=== PATIENT | male | born 1950 | race Caucasian/White ===

== ENCOUNTER 2019-04-23 03:36 | Inpatient (IN) | payer MEDICARE, OTHER, SELFPAY ==
[2019-04-23] VITALS (14 sets, daily range): BP systolic 96–157; BP diastolic 58–103; PULSE 78–110; RESP 16–24; TEMP 36.5–37.4; O2SAT 88–97; BMI 33.4
--- NOTE | 2019-04-23 03:45 | RAD_ITS ---
STUDY: X-RAY CHEST REASON FOR EXAM: Male, 68 years old. Agitation TECHNIQUE: AP portable COMPARISON: None. FINDINGS: The lungs are clear and expanded. There is no demonstrated pleural abnormality. Normal size heart. Normal mediastinum and gypsy. There is vascular congestion. Normal visualized aortic arch and descending thoracic aorta. Normal visualized thoracic spine. Normal visualized ribs, clavicles, and shoulders. There is no demonstrated abnormality of the visualized soft tissue structures of the upper abdomen. RAD/Chest 1 View (Portable) IMPRESSION: Central vascular congestion. No focal lung consolidative changes. Electronically Signed: Jose Armando Blanco, at 4:57 EDT Tel , Service support ,
--- NOTE | 2019-04-23 03:45 | EKG12_ITS ---
Test Reason : Blood Pressure : / mmHG Vent. Rate : 107 BPM Atrial Rate : 088 BPM P-R Int : 000 ms QRS Dur : 148 ms QT Int : 380 ms P-R-T Axes : 000 -62 020 degrees QTc Int : 507 ms Atrial fibrillation with rapid ventricular response Right bundle branch block Left anterior fascicular block Bifascicular block Abnormal ECG Confirmed by CONNER NAVARRO, KATE ([id number]), communications editor DILLON EAGLE ([id number]) on 04/24/2019 10:42:44 AM Referred By: Errol Longoria Confirmed By:SILVIA PRIETO MD
--- NOTE | 2019-04-23 03:45 | CT_ITS ---
STUDY: CT BRAIN WITHOUT CONTRAST REASON FOR EXAM: Male, 68 years old. Agitation and combative, Parkinson's RADIATION DOSAGE (If Supplied By Facility): CTDIvol = ( 44.99 ) mGy, DLP = ( 863.60 ) mGycm TECHNIQUE: Transaxial CT imaging of the brain was performed without administration of intravenous contrast material. Individualized dose optimization techniques were used for this CT. COMPARISON: No relevant priors. FINDINGS: Normal soft tissue structures. Normal calvarium. Normal size ventricles and extra-axial spaces for the patient's age. Normal white matter tracts of the cerebral hemispheres. Normal basal ganglia and thalami. Normal brainstem. Normal cerebellum. There is no intracranial hemorrhage. There are no findings of an acute ischemic infarction. Normal visualized paranasal sinuses. There has been prior bilateral maxillary sinus antrectomies. CT/Brain/Head without Contrast IMPRESSION: Negative unenhanced CT scan of the brain for acute intracranial abnormality. Electronically Signed: Jose Armando Blanco, at 4:46 EDT Tel , Service support ,
[2019-04-23 04:20] LABS: Absolute Lymphocyte Count 1.54 X10^3/ul (0.83-4.51); Absolute Neutrophil Count 7.2 X10^3/uL (2.0-7.7); Basophil# 0.03 X10^3/uL; Basophil% 0.3 % (0-1); Eosinophil# 0.18 X10^3/uL; Eosinophils% 1.8 % (0-5); Hematocrit 41.4 % (40-54); Hemoglobin 12.9 g/dl (13.0-16.5); Lymphocyte # 1.54 X10^3/ul (4.0); Lymphocyte % 15.1 % (19-41); Mean Corp Hgb Conc 31.2 g/gl (32-36); Mean Corpuscular Hgb 23.6 pg (27.0-32.0); Mean Corpuscular Volume 75.8 fL (80-94); Mean Platelet Vol. 9.8 fl (6.2-12.0); Monocyte# 1.21 X10^3/uL; Monocyte% 11.8 % (0-10); Neutrophil # 7.24 X10^3/uL (2.7-7.7); Neutrophil % 70.7 % (47-70); Platelet Count 245 K/mm3 (150-450); RBC Distribution Width CV 17.5 % (11.6-14.6); RBC Distribution Width SD 47.3 fl (35.1-43.9); Red Blood Count 5.46 M/mm3 (4.6-6.2); White Blood Count 10.2 K/mm3 (4.4-11.0)
[2019-04-23 04:27] LABS: International Normalized Ratio 1.9; Prothrombin Time (Protime)PT. 21.6 SECONDS (11.7-14.9)
[2019-04-23 04:28] LABS: POSITIVE COUNT NO; POSITIVE DIFFERENTIAL NO; POSITIVE MORPHOLOGY NO
[2019-04-23 04:38] LABS: ALB/GLOB Ratio 0.8 RATIO (0.9-2.4); AST(SGOT) 15 U/L (15-37); Alanine Aminotransfer ALT/SGPT 20 U/L (16-61); Albumin, Serum 3.6 g/dL (3.2-5.0); Alkaline Phosphatase 93 U/L (45-117); Anion Gap 7 (5-15); BUN 24 mg/dL (7-18); Calcium,Total 8.8 mg/dL (8.5-10.1); Chloride 108 mmol/L (98-107); Creatinine, Serum 0.96 mg/dL (0.70-1.30); EST Glomerular Filtration Rate 83 mL/min (>60); Est Glom Filt Rate - Afr Amer 100 mL/min (>60); Globulin 4.4 g/dL (2.2-4.2); Glucose 99 mg/dL (74-106); Sodium Level 145 mmol/L (136-145)
[2019-04-23 04:39] LABS: Alcohol, Blood (Medical)-Serum < 3.0 mg/dL
--- NOTE | 2019-04-23 05:12 | ED.VISSUMM ---
- ER Visit Summary Date of Service: 04/23/19 Chief Complaint: Agitation History of Present Illness: The patient is a 68 M presents with agitation. He has a history of Parkinson's disease and associated psychosis, diabetes, hypertension, history of DVT and pulmonary embolism. He has no history of coronary disease NM CHF. Per the nursing facility he was combative agitated acting out. Family states this is not new. He has standing orders for Haldol. He was given Haldol shortly before transportation here. EMS reports that after they turned down the lights in the squad he was calm and resting. Family is unaware of any recent illness such as fevers vomiting diarrhea. He does have a history of UTIs. Physical Examination: Afebrile initial heart rate 88 initial respiratory rate 22 pulse ox 97% Moist mucous membranes Heart regular rate and rhythm Lungs are clear I do not appreciate rales or wheezing Abdomen soft Extremities nontender Somnolent with snoring respirations does not open his eyes to voice or tactile stimuli but he has been seen moving all 4 extremities he does not appear to have any lateralizing or focal deficits Test Results: EKG shows atrial fibrillation at a rate of 107 with a right bundle branch block and left anterior fascicular block. Labs notable for BUN 24, INR 1.9. Troponin negative. Alcohol negative. Urinalysis and urine drug screen are currently pending. Chest x-ray shows central vascular congestion. CT of the head is negative for acute intracranial process. Emergency Department Course and Treatment: I spoke to family and they believe that they may have just waited too long to give the patient Haldol before he became increasingly agitated. They do note that he has standing orders for Haldol at the nursing facility. We discussed medical clearance and then reevaluation once awake to see if he would require geriatric psychiatric placement versus transfer back to the facility. However with the above work-up he was found to be in new onset atrial fibrillation with aVR. Family states he has no history of this. Additionally he has some central vascular congestion on chest x-ray. On reevaluation his pulse ox is 88% to 89% on room air. He was placed on oxygen by nasal cannula. He likely does have some CHF. He was given IV Lasix and Torres was placed. Patient discussed with the hospitalist and admitted. Treatment Plan: [] Disposition: Admit Impression: New onset atrial fibrillation with RVR Agitation This note was generated with [employer] dictation software. It may contain incorrect words, spelling, and punctuation that were not noted in review of the chart prior to signing ED Disposition - Plan for ED Patient: Referrals: Deng Velasquez, CASE PLANNER-C [Primary Care Provider] -
[2019-04-23] MEDS: Furosemide 20 MG/2 ML VIAL IV ×4 (05:32→22:38)
--- NOTE | 2019-04-23 05:38 | HP.PCM_ITS ---
Problem List (1) Dementia Status: Chronic (2) Probable acute CHF Status: Acute (3) Agitation Status: Acute (4) Atrial fibrillation with RVR Status: Acute (5) History of pulmonary embolism Status: Chronic (6) History of DVT (deep vein thrombosis) Status: Chronic (7) Type 2 diabetes mellitus Status: Chronic (8) Hypertension Status: Chronic (9) Parkinson disease Status: Chronic History of Present Illness Date of Admission: 04/23/19 Chief Complaint: Agitation. The patient is a 68 year old M with past medical history as mentioned above was [facility] from [facility] because of agitation. At this time, patient is very sleepy, difficult to arouse because he received IM Haldol at the [facility]. There was no family members at the patient's bedside. I took the information from the ER physician and the patient's [facility] packet. According to the ER physician, patient was very agitated, combative today at the [facility] and his family stated that he has been having issues with agitation and this is not totally new. Patient received IM Haldol just before transportation to the hospital. According to the EMS, once they tell him to lie down in the squad, patient became calm and resting and he slept. He has been sleeping since then. No reported recent or acute illness according to the nursing staff of the [facility] as well as family. Patient had a history of DVT and PE and he has been on Coumadin for long time, his INR is 1.9. He had a history of Parkinson's disease and dementia with psychosis and he has been on carbidopa levodopa, doxepin and reportedly according to the family, he has been having issues with agitation and hallucination. He had a history of hypertension which seemed to be under control with metoprolol and nifedipine. He had a history of type 2 diabetes mellitus and he has been on Tradjenta. In the emergency department, patient was afebrile, was in A. fib with RVR with heart rate of 107, blood pressure was stable and reportedly, pulse ox was 88% on room air. Routine blood work was unremarkable. LFT was normal. EKG revealed A. fib with RVR, no acute ischemic changes. Troponin is negative. Chest x-ray showed cardiomegaly and mild bilateral pulmonary vascular congestion. CT scan brain showed no acute findings. He is being admitted for new onset A. fib with RVR, probable acute CHF, agitation followed by encephalopathy secondary to IM Haldol. Past Medical History Past Medical History (Chronic Problems): Chronic Problems Dementia (Chronic) History of pulmonary embolism (Chronic) History of DVT (deep vein thrombosis) (Chronic) Type 2 diabetes mellitus (Chronic) Hypertension (Chronic) Chronic anticoagulation (Chronic) Secondary to remote history of DVT/PE Hallucination (Chronic) Believed secondary to parkinsonian medication Parkinson disease (Chronic) Allergies No Known Allergies Allergy (Verified 04/23/19 03:43) Home Medications: Ambulatory Orders Medication Instructions Recorded Carbidopa/Levodopa 50/200 [Sinemet 1 tablet PO 4X/DAY 07/13/17 CR 50/200] Doxepin HCl 25 mg PO QHS 07/13/17 NIFEdipine [Procardia Xl] 60 mg PO DAILY 07/13/17 Omeprazole [Prilosec] 40 mg PO DAILY 07/13/17 Warfarin Sodium [Coumadin] 3 mg PO DAILY 07/13/17 traMADol [Ultram] 100 mg PO TID PRN PRN #30 tablet 07/15/17 Ascorbic Acid [Vitamin C] 500 mg PO DAILY 04/23/19 Dapsone 25 mg PO DAILY 04/23/19 Furosemide [Lasix] 20 mg PO QODAY 04/23/19 Gabapentin [Neurontin] 100 mg PO TID 04/23/19 Insulin Lispro [Humalog] 3 unit SQ TID 04/23/19 Linagliptin [Tradjenta] 2.5 mg PO DAILY 04/23/19 Metoprolol Tartrate 25 mg PO BID 04/23/19 Multivit with Iron,Minerals 1 ea PO DAILY 04/23/19 [Complete Senior] Pimavanserin Tartrate [Nuplazid] 34 mg PO DAILY 04/23/19 Pramipexole Di-HCl [Mirapex] 0.75 mg PO TID 04/23/19 Quetiapine Fumarate [Seroquel] 25 mg PO DAILY 04/23/19 Warfarin [Coumadin ([facility])] 4 mg PO DAILY 04/23/19 Surgical History: cholecystectomy Psychiatric History: Depression, - - Psychosis. Lives: Intermediate Smoking Status: Never smoker Alcohol: None Drugs: None - *Family History Paternal History Items: No pertinent history Maternal History Items: No pertinent history Review of Systems Constitutional: Reports: - - Unobtainable, patient is very sleepy, difficult to arouse. Eyes: Reports: - - Unobtainable, patient is very sleepy, difficult to arouse. HEENT: Reports: - - Unobtainable, patient is very sleepy, difficult to arouse. Cardiovascular: Reports: - - Unobtainable, patient is very sleepy, difficult to arouse. Respiratory: Reports: - - Unobtainable, patient is very sleepy, difficult to arouse. Gastrointestinal: Reports: - - Unobtainable, patient is very sleepy, difficult to arouse. Genitourinary: Reports: - - Unobtainable, patient is very sleepy, difficult to arouse. Musculoskeletal: Reports: - - Unobtainable, patient is very sleepy, difficult to arouse. Neurological: Reports: - - Unobtainable, patient is very sleepy, difficult to arouse. VTE Information - Inpt Only VTE Present on Admission: No VTE Mechan Device Prophylaxis: None VTE Pharm Prophylaxis ordered?: No Patient Problems: Active and Suspected Problems Probable acute CHF (Acute) Agitation (Acute) Atrial fibrillation with RVR (Acute) - Physical Exam General: - - Very sleepy, difficult to arouse. HEENT: Atraumatic, PERRLA, EOMI, Normocephalic Oral: Moist Mucosa, No Gingival or Mucosal Lesions/ Ulcerations Neck: Supple, No JVD, Negative Carotid Bruits, Trachea Midline, Thyroid Normal Size and Texture Lungs: Clear to auscultation, Normal air movement, No rhonchi, No wheeze, No rales, Diminished Cardiovascular: Normal S1, Normal S2, No murmurs, PMI Normal, Irregular Rate, Tachycardic Abdomen: Bowel Sounds Present, Soft, Non Tender, Non-Distended, No Hepato- splenomegaly, Obese Extremities: No clubbing, No cyanosis, Edema - Trace edema. Skin: No rashes, No breakdown Lymphatic: No Cervical, Supraclavicular, or Inguinal Adenopathy Neurological: Cranial nerves II-XII grossly intact, - - Moving all limbs. Psych/Mental Status: - - Unable to assess. Vital Signs Temp Pulse Resp BP Pulse Ox 98.4 F 106 H 24 H 149/92 H 88 04/23/19 03:38 04/23/19 05:00 04/23/19 05:00 04/23/19 04:37 04/23/19 05:00 Oxygen Delivery Method Room Air Weight: 233 lb 0.458 oz Body Mass Index (BMI) 33.4 Laboratory Tests Past 24 Hrs 04/23/19 04/23/19 04/23/19 04:05 04:05 04:05 WBC 10.2 RBC 5.46 Hgb 12.9 L Hct 41.4 MCV 75.8 L MCH 23.6 L MCHC 31.2 L RDW 17.5 H RDW Differential 47.3 H Plt Count 245 MPV 9.8 Immature Gran % (Auto) 0.300 Neut % (Auto) 70.7 H Lymph % (Auto) 15.1 L Ponce % (Auto) 11.8 H Eos % (Auto) 1.8 Baso % (Auto) 0.3 Absolute Neuts (auto) 7.2 Absolute Lymphs (auto) 1.54 Total Counted Not Reportable PT INR Sodium 145 Potassium 4.0 Chloride 108 H Carbon Dioxide 30.0 Anion Gap 7 BUN 24 H Creatinine 0.96 Estim Creat Clear Calc 77.10 Est GFR (MDRD) Af Amer 100 Est GFR (MDRD) Non-Af 83 BUN/Creatinine Ratio 25.0 H Glucose 99 Calcium 8.8 Total Bilirubin 0.40 AST 15 ALT 20 Alkaline Phosphatase 93 Troponin I Total Protein 8.0 Albumin 3.6 Globulin 4.4 H Albumin/Globulin Ratio 0.8 L Ethyl Alcohol < 3.0 04/23/19 04/23/19 04:05 04:05 WBC RBC Hgb Hct MCV MCH MCHC RDW RDW Differential Plt Count MPV Immature Gran % (Auto) Neut % (Auto) Lymph % (Auto) Ponce % (Auto) Eos % (Auto) Baso % (Auto) Absolute Neuts (auto) Absolute Lymphs (auto) Total Counted PT 21.6 H INR 1.9 Sodium Potassium Chloride Carbon Dioxide Anion Gap BUN Creatinine Estim Creat Clear Calc Est GFR (MDRD) Af Amer Est GFR (MDRD) Non-Af BUN/Creatinine Ratio Glucose Calcium Total Bilirubin AST ALT Alkaline Phosphatase Troponin I < 0.015 Total Protein Albumin Globulin Albumin/Globulin Ratio Ethyl Alcohol Clinical Impression(s) from Imaging Studies Brain CT 04/23/19 03:45 IMPRESSION: Negative unenhanced CT scan of the brain for acute intracranial abnormality. Electronically Signed: Jose Armando Blanco, at 4:46 EDT Tel , Service support , Chest X-Ray 04/23/19 03:45 IMPRESSION: Central vascular congestion. No focal lung consolidative changes. Electronically Signed: Jose Armando Blanco, at 4:57 EDT Tel , Service support , Assessment/Plan All Active Problems Probable acute CHF (Acute) Agitation (Acute) Atrial fibrillation with RVR (Acute) This is a 68 years old male patient transferred from [facility] because of agitation, found to have new onset A. fib with RVR, probable acute CHF and agitation followed by encephalopathy/lethargy secondary to IM Haldol. #1 acute new onset A. fib with RVR: EKG reviewed, revealed A. fib with RVR, no acute ischemic changes. Heart rate has been around 100-110, blood pressure stable. Troponin is negative. He had no history of A. fib. Plan: Admit to PCU, cardiac monitoring, serial cardiac enzymes, check serum magnesium, TSH, 2D echocardiogram, continue p.o. metoprolol for rate control, IV metoprolol as needed, continue Coumadin, INR is 1.9, PT OT evaluation and treatment. #2 probable acute systolic CHF: This is based on hypoxia, patient required oxygen as well as chest x-ray findings. Could be precipitated by acute A. fib with RVR. Plan: Fluid restriction, IV Lasix, 2D echocardiogram, continue metoprolol. #3 agitation/hallucination: Followed by lethargy, sleepiness, encephalopathy. Patient received IM Haldol at the [facility]. CT scan brain showed no acute findings. He is moving all limbs, cranial nerves are intact. He had a history of Parkinson's disease and dementia with psychosis. Urinalysis and urine drug screen are pending. Blood alcohol level was less than 3. Plan to hold p.o. medications until patient is awake and alert, aspiration precautions. #4 type 2 diabetes mellitus: N.p.o. for now, ADA diet when patient is awake and alert, Accu-Cheks every 4 hours, insulin scale, hold Tradjenta for now. #5 hypertension: Blood pressure stable, continue metoprolol and nifedipine when patient is fully alert and awake. #6 history of PE/DVT: Continue Coumadin, INR is 1.9. #7 Parkinson's disease: Continue carbidopa levodopa when patient is awake. #8 dementia/hallucinations/agitation: Continue Seroquel, doxepin and Nuplazid. #9 CODE STATUS: Full code according to document from the [facility]. Patient is sleepy and no family member at the bedside. #10 DVT prophylaxis: On Coumadin, INR is 1.9. This note was generated with [employer] dictation software. It may contain incorrect words, spelling, and punctuation that were not noted in checking the note before signing. Code Visit Inpatient E&M: 31045 Init Hosp L3
[2019-04-23 05:50] LABS: Bacteria 0 SEEN /hpf (None Seen); Mucous, Urine 0 SEEN /hpf (<or=2+); Red Blood Cells-Urine 0 SEEN /hpf (0-5); White Blood Cells 0 SEEN /hpf (0-5)
[2019-04-23 06:07] LABS: Amphetamine Urine VISTA NEGATIVE (<1000 ng/mL); Barbiturate Urine VISTA NEGATIVE (< 200 ng/mL); Benzodiazepine Urine VISTA NEGATIVE (< 200 ng/mL); Cocaine Urine VISTA NEGATIVE (< 300 ng/mL); Ecstacy Urine VISTA NEGATIVE (< 500 ng/mL); Methadone Urine VISTA NEGATIVE (< 300 ng/mL); PCP Urine VISTA NEGATIVE (< 25 ng/mL); THC Urine VISTA NEGATIVE (< 50 ng/mL); Vista UDS pH Range 7
[2019-04-23 06:14] LABS: Color, Urine Yellow (Yellow); Glucose, Dipstick Normal (Normal); Ketone-Dipstick Negative (Negative); Leukocyte Esterase-Dipstick Negative /ul (Negative); Nitrite-Dipstick Negative (Negative); Occult Blood-Urine Negative /ul (Negative); Protein-Dipstick Negative (Negative); Specific Gravity, Urine 1.005 (1.002-1.030); Urine Bilirubin Dipstick Negative (Negative); Urine Clarity Clear (Clear); Urine Urobilinogen Normal (Normal)
[2019-04-23 06:15] LABS: Squamous Epithelial Cells - UA 0-5 SEEN /hpf (0-5)
--- NOTE | 2019-04-23 06:26 | ECHOCS_ITS ---
Reason For Study: AFIB/FLUTTER Procedure This was a 2D Doppler, Color Flow transthoracic echocardiogram. The study was technically difficult. PT was agitated, unable to cooperate. Exam was performed supine as PT fell asleep. Exam performed portable in patient room. Left Ventricle Normal size and thickness. The estimated ejection fraction is 60 %. Normal diastology for age. No regional wall motion abnormalities noted. Right Ventricle Normal right ventricle. Normal systolic function. Atria The left atrium is mildly enlarged. The right atrium is mildly enlarged. No doppler evidence for ASD. Mitral Valve There is no mitral valve stenosis. No mitral valve insufficiency. Tricuspid Valve There is no tricuspid stenosis. Unable to estimate RV systolic pressure due to insufficient tricuspid regurgitant envelope. Trivial tricuspid valve insufficiency. Aortic Valve Trisinus/trileaflet aortic valve. There is no aortic stenosis. No aortic valve insufficiency. Pulmonic Valve There is no pulmonic valvular stenosis. No pulmonic valve insufficiency. Great Vessels Normal aortic root. Pericardium/Pleural No pericardial effusion. Medication Diluted definity 4.0ml given slow IV push to enhance endocardial definition. MMode/2D Measurements & Calculations LVIDd: 4.6 cm IVSd: 1.2 cm Ao root diam: 3.4 cm LVIDs: 3.0 cm LVPWd: 1.2 cm RVDd: 4.0 cm FS: 35.5 % LAV(MOD-bp): 102.1 ml LA A4 area: 28.1 cm2 LA dimension(2D): 3.8 cm LAV(MOD-bp) Indexed: 45.8 ml/m2 LAV(MOD-sp2): 92.7 ml LAV(MOD-sp4): 96.3 ml RA A4 area: 16.7 cm2 Doppler Measurements & Calculations MV E max porsha: 94.3 cm/sec Ao V2 max: 102.5 cm/sec LV V1 max: 85.3 cm/sec Ao max P.2 mmHg LV V1 max P.9 mmHg PA V2 max: 91.3 cm/sec TR max porsha: 207.5 cm/sec TR max P.2 mmHg Interpretation Summary The study was technically difficult. The estimated ejection fraction is 60 %. Normal diastology for age. Diluted definity 4.0ml given slow IV push to enhance endocardial definition. The study was technically difficult. Ordering Physician: Errol Longoria Referring Physician: Deng Velasquez Performed By: Kira Carlos, AGATHA, RVT
[2019-04-23 06:56] LABS: Magnesium 2.3 mg/dL (1.6-2.6); Thyroid Stim Hormone (TSH) 3.44 uIU/mL (0.358-3.74)
[2019-04-23 07:05] LABS: Bedside Glucose 91 mg/dL (70-110)
--- NOTE | 2019-04-23 07:40 | CPS ---
attempted to obtain pulse ox....pt uncooperative and unable to place probe on finger
[2019-04-23 08:35] LABS: BNP,B-Type NATRIURETIC PEPTIDE 240.2 pg/mL (0-100)
--- NOTE | 2019-04-23 13:36 | PN_ITS ---
<Vijay Whitfield - Last Filed: 04/23/19 13:36> Patient Problems: Active and Suspected Problems Probable acute CHF (Acute) Agitation (Acute) Atrial fibrillation with RVR (Acute) Subjective: Lethargic. Opens eyes. Does not speak. Immediately goes back to sleep. Becomes angry with nursing when they try to reposition him. - Physical Exam General: Alert, Confused, Disoriented, Lethargic HEENT: Atraumatic, PERRLA, EOMI, Normocephalic Neck: Supple, No JVD, Negative Carotid Bruits Lungs: Clear to auscultation, Normal air movement Cardiovascular: Regular rate, No murmurs Abdomen: Bowel Sounds Present, Soft, Non Tender Extremities: No edema, Capillary Refill Less than 3 Seconds Skin: No rashes, No breakdown Musculoskeletal: No Tenderness to Palpation of Joints or Extremities Neurological: Cranial nerves II-XII grossly intact Psych/Mental Status: Agitated Vital Signs Temp Pulse Resp BP Pulse Ox 97.9 F 96 20 H 96/60 97 04/23/19 11:27 04/23/19 11:27 04/23/19 11:27 04/23/19 11:27 04/23/19 11:27 Oxygen Flow Rate (L/min) 3 Oxygen Delivery Method Room Air Weight: 233 lb 0.458 oz Body Mass Index (BMI) 33.4 Intake and Output for Last 24 Hours 04/21/19 04/22/19 04/23/19 23:59 23:59 23:59 Output Total 4000 / 4000 Balance -4000 / -4000 Laboratory Tests Past 24 Hrs 04/23/19 04/23/19 04/23/19 04:05 04:05 04:05 WBC 10.2 RBC 5.46 Hgb 12.9 L Hct 41.4 MCV 75.8 L MCH 23.6 L MCHC 31.2 L RDW 17.5 H RDW Differential 47.3 H Plt Count 245 MPV 9.8 Immature Gran % (Auto) 0.300 Neut % (Auto) 70.7 H Lymph % (Auto) 15.1 L [place] % (Auto) 11.8 H Eos % (Auto) 1.8 Baso % (Auto) 0.3 Absolute Neuts (auto) 7.2 Absolute Lymphs (auto) 1.54 Total Counted Not Reportable PT INR Sodium 145 Potassium 4.0 Chloride 108 H Carbon Dioxide 30.0 Anion Gap 7 BUN 24 H Creatinine 0.96 Estim Creat Clear Calc 77.10 Est GFR (MDRD) Af Amer 100 Est GFR (MDRD) Non-Af 83 BUN/Creatinine Ratio 25.0 H Glucose 99 Calcium 8.8 Magnesium Total Bilirubin 0.40 AST 15 ALT 20 Alkaline Phosphatase 93 Troponin I B-Natriuretic Peptide Total Protein 8.0 Albumin 3.6 Globulin 4.4 H Albumin/Globulin Ratio 0.8 L TSH Urine Color Urine Clarity Urine pH Ur Specific [place] Urine Protein Urine Glucose (UA) Urine Ketones Urine Occult Blood Urine Nitrite Urine Bilirubin Urine Urobilinogen Ur Leukocyte Esterase Urine RBC Urine WBC Ur Squamous Epith Cells Urine Bacteria Urine Mucus Urine Opiates Screen Urine Methadone Screen Ur Barbiturates Screen Ur Phencyclidine Scrn Ur Amphetamines Screen U Methamphetamin-MDMA U Benzodiazepines Scrn Urine Cocaine Screen U Cannabinoids Screen Ur Drug Screen Comment Ethyl Alcohol < 3.0 04/23/19 04/23/19 04/23/19 04:05 04:05 04:05 WBC RBC Hgb Hct MCV MCH MCHC RDW RDW Differential Plt Count MPV Immature Gran % (Auto) Neut % (Auto) Lymph % (Auto) [place] % (Auto) Eos % (Auto) Baso % (Auto) Absolute Neuts (auto) Absolute Lymphs (auto) Total Counted PT 21.6 H INR 1.9 Sodium Potassium Chloride Carbon Dioxide Anion Gap BUN Creatinine Estim Creat Clear Calc Est GFR (MDRD) Af Amer Est GFR (MDRD) Non-Af BUN/Creatinine Ratio Glucose Calcium Magnesium 2.3 Total Bilirubin AST ALT Alkaline Phosphatase Troponin I < 0.015 B-Natriuretic Peptide Total Protein Albumin Globulin Albumin/Globulin Ratio TSH 3.44 Urine Color Urine Clarity Urine pH Ur Specific [place] Urine Protein Urine Glucose (UA) Urine Ketones Urine Occult Blood Urine Nitrite Urine Bilirubin Urine Urobilinogen Ur Leukocyte Esterase Urine RBC Urine WBC Ur Squamous Epith Cells Urine Bacteria Urine Mucus Urine Opiates Screen Urine Methadone Screen Ur Barbiturates Screen Ur Phencyclidine Scrn Ur Amphetamines Screen U Methamphetamin-MDMA U Benzodiazepines Scrn Urine Cocaine Screen U Cannabinoids Screen Ur Drug Screen Comment Ethyl Alcohol 04/23/19 04/23/19 04/23/19 04:05 05:45 05:45 WBC RBC Hgb Hct MCV MCH MCHC RDW RDW Differential Plt Count MPV Immature Gran % (Auto) Neut % (Auto) Lymph % (Auto) [place] % (Auto) Eos % (Auto) Baso % (Auto) Absolute Neuts (auto) Absolute Lymphs (auto) Total Counted PT INR Sodium Potassium Chloride Carbon Dioxide Anion Gap BUN Creatinine Estim Creat Clear Calc Est GFR (MDRD) Af Amer Est GFR (MDRD) Non-Af BUN/Creatinine Ratio Glucose Calcium Magnesium Total Bilirubin AST ALT Alkaline Phosphatase Troponin I B-Natriuretic Peptide 240.2 H Total Protein Albumin Globulin Albumin/Globulin Ratio TSH Urine Color Yellow Urine Clarity Clear Urine pH 7.0 Ur Specific [place] 1.005 Urine Protein Negative Urine Glucose (UA) Normal Urine Ketones Negative Urine Occult Blood Negative Urine Nitrite Negative Urine Bilirubin Negative Urine Urobilinogen Normal Ur Leukocyte Esterase Negative Urine RBC 0 SEEN Urine WBC 0 SEEN Ur Squamous Epith Cells 0-5 SEEN Urine Bacteria 0 SEEN Urine Mucus 0 SEEN Urine Opiates Screen NEGATIVE Urine Methadone Screen NEGATIVE Ur Barbiturates Screen NEGATIVE Ur Phencyclidine Scrn NEGATIVE Ur Amphetamines Screen NEGATIVE U Methamphetamin-MDMA NEGATIVE U Benzodiazepines Scrn NEGATIVE Urine Cocaine Screen NEGATIVE U Cannabinoids Screen NEGATIVE Ur Drug Screen Comment Ethyl Alcohol 04/23/19 04/23/19 07:20 10:00 WBC RBC Hgb Hct MCV MCH MCHC RDW RDW Differential Plt Count MPV Immature Gran % (Auto) Neut % (Auto) Lymph % (Auto) [place] % (Auto) Eos % (Auto) Baso % (Auto) Absolute Neuts (auto) Absolute Lymphs (auto) Total Counted PT INR Sodium Potassium Chloride Carbon Dioxide Anion Gap BUN Creatinine Estim Creat Clear Calc Est GFR (MDRD) Af Amer Est GFR (MDRD) Non-Af BUN/Creatinine Ratio Glucose Calcium Magnesium Total Bilirubin AST ALT Alkaline Phosphatase Troponin I < 0.015 < 0.015 B-Natriuretic Peptide Total Protein Albumin Globulin Albumin/Globulin Ratio TSH Urine Color Urine Clarity Urine pH Ur Specific [place] Urine Protein Urine Glucose (UA) Urine Ketones Urine Occult Blood Urine Nitrite Urine Bilirubin Urine Urobilinogen Ur Leukocyte Esterase Urine RBC Urine WBC Ur Squamous Epith Cells Urine Bacteria Urine Mucus Urine Opiates Screen Urine Methadone Screen Ur Barbiturates Screen Ur Phencyclidine Scrn Ur Amphetamines Screen U Methamphetamin-MDMA U Benzodiazepines Scrn Urine Cocaine Screen U Cannabinoids Screen Ur Drug Screen Comment Ethyl Alcohol POC Glucose 04/23/19 07:02 POC Glucose 91 Medical Necessity - Tobacco Use Smoking Status: Never smoker Assessment/Plan All Active Problems Probable acute CHF (Acute) Agitation (Acute) Atrial fibrillation with RVR (Acute) 1. Toxic encephalopathy - polypharmacy - hold orals while lethargic. Plan to not restart gabapentin, haldol, seroquel, dapsone, tramadol, doxepin. UA neg. Tox screen neg. CT brain neg. 2. Afib RVR - possibly 2/2 prolonged QT >500 from above medications. Adjustments made. Continue metoprolol, coumadin. TSH normal. Mag normal. Trop normal. 3. Acute diastolic CHF - EF 60% - continue lasix. BNP elevated. On 3 lpm. CXR with central vasc congestion. 4. Parkinsons with dementia and behavioral disturbances - as above medications adjusted. OK to continue Nuplazid. May need sinemet restarted if rigidity starts. 5. Hx PE - warfarin 6. HTN -stable 7. DMt2 - SSI DVT ppx: warfarin DC planning: back to SNF when stable This patient was seen by Vijay Whitfield PA-C under the supervision of Doctor Flores. <Valentina Flores - Last Filed: 04/23/19 16:40> - Physical Exam Vital Signs Temp Pulse Resp BP Pulse Ox 98.8 F 88 16 114/67 97 04/23/19 15:01 04/23/19 15:34 04/23/19 15:01 04/23/19 15:01 04/23/19 15:01 Oxygen Flow Rate (L/min) 3 Oxygen Delivery Method Room Air Weight: 105.7 kg Body Mass Index (BMI) 33.4 Intake and Output for Last 24 Hours 04/21/19 04/22/19 04/23/19 23:59 23:59 23:59 Output Total 4000 / 4000 Balance -4000 / -4000 Laboratory Tests Past 24 Hrs 04/23/19 04/23/19 04/23/19 04:05 04:05 04:05 WBC 10.2 RBC 5.46 Hgb 12.9 L Hct 41.4 MCV 75.8 L MCH 23.6 L MCHC 31.2 L RDW 17.5 H RDW Differential 47.3 H Plt Count 245 MPV 9.8 Immature Gran % (Auto) 0.300 Neut % (Auto) 70.7 H Lymph % (Auto) 15.1 L [place] % (Auto) 11.8 H Eos % (Auto) 1.8 Baso % (Auto) 0.3 Absolute Neuts (auto) 7.2 Absolute Lymphs (auto) 1.54 Total Counted Not Reportable PT INR Sodium 145 Potassium 4.0 Chloride 108 H Carbon Dioxide 30.0 Anion Gap 7 BUN 24 H Creatinine 0.96 Estim Creat Clear Calc 77.10 Est GFR (MDRD) Af Amer 100 Est GFR (MDRD) Non-Af 83 BUN/Creatinine Ratio 25.0 H Glucose 99 Calcium 8.8 Magnesium Total Bilirubin 0.40 AST 15 ALT 20 Alkaline Phosphatase 93 Troponin I B-Natriuretic Peptide Total Protein 8.0 Albumin 3.6 Globulin 4.4 H Albumin/Globulin Ratio 0.8 L TSH Urine Color Urine Clarity Urine pH Ur Specific [place] Urine Protein Urine Glucose (UA) Urine Ketones Urine Occult Blood Urine Nitrite Urine Bilirubin Urine Urobilinogen Ur Leukocyte Esterase Urine RBC Urine WBC Ur Squamous Epith Cells Urine Bacteria Urine Mucus Urine Opiates Screen Urine Methadone Screen Ur Barbiturates Screen Ur Phencyclidine Scrn Ur Amphetamines Screen U Methamphetamin-MDMA U Benzodiazepines Scrn Urine Cocaine Screen U Cannabinoids Screen Ur Drug Screen Comment Ethyl Alcohol < 3.0 04/23/19 04/23/19 04/23/19 04:05 04:05 04:05 WBC RBC Hgb Hct MCV MCH MCHC RDW RDW Differential Plt Count MPV Immature Gran % (Auto) Neut % (Auto) Lymph % (Auto) [place] % (Auto) Eos % (Auto) Baso % (Auto) Absolute Neuts (auto) Absolute Lymphs (auto) Total Counted PT 21.6 H INR 1.9 Sodium Potassium Chloride Carbon Dioxide Anion Gap BUN Creatinine Estim Creat Clear Calc Est GFR (MDRD) Af Amer Est GFR (MDRD) Non-Af BUN/Creatinine Ratio Glucose Calcium Magnesium 2.3 Total Bilirubin AST ALT Alkaline Phosphatase Troponin I < 0.015 B-Natriuretic Peptide Total Protein Albumin Globulin Albumin/Globulin Ratio TSH 3.44 Urine Color Urine Clarity Urine pH Ur Specific [place] Urine Protein Urine Glucose (UA) Urine Ketones Urine Occult Blood Urine Nitrite Urine Bilirubin Urine Urobilinogen Ur Leukocyte Esterase Urine RBC Urine WBC Ur Squamous Epith Cells Urine Bacteria Urine Mucus Urine Opiates Screen Urine Methadone Screen Ur Barbiturates Screen Ur Phencyclidine Scrn Ur Amphetamines Screen U Methamphetamin-MDMA U Benzodiazepines Scrn Urine Cocaine Screen U Cannabinoids Screen Ur Drug Screen Comment Ethyl Alcohol 04/23/19 04/23/19 04/23/19 04:05 05:45 05:45 WBC RBC Hgb Hct MCV MCH MCHC RDW RDW Differential Plt Count MPV Immature Gran % (Auto) Neut % (Auto) Lymph % (Auto) [place] % (Auto) Eos % (Auto) Baso % (Auto) Absolute Neuts (auto) Absolute Lymphs (auto) Total Counted PT INR Sodium Potassium Chloride Carbon Dioxide Anion Gap BUN Creatinine Estim Creat Clear Calc Est GFR (MDRD) Af Amer Est GFR (MDRD) Non-Af BUN/Creatinine Ratio Glucose Calcium Magnesium Total Bilirubin AST ALT Alkaline Phosphatase Troponin I B-Natriuretic Peptide 240.2 H Total Protein Albumin Globulin Albumin/Globulin Ratio TSH Urine Color Yellow Urine Clarity Clear Urine pH 7.0 Ur Specific [place] 1.005 Urine Protein Negative Urine Glucose (UA) Normal Urine Ketones Negative Urine Occult Blood Negative Urine Nitrite Negative Urine Bilirubin Negative Urine Urobilinogen Normal Ur Leukocyte Esterase Negative Urine RBC 0 SEEN Urine WBC 0 SEEN Ur Squamous Epith Cells 0-5 SEEN Urine Bacteria 0 SEEN Urine Mucus 0 SEEN Urine Opiates Screen NEGATIVE Urine Methadone Screen NEGATIVE Ur Barbiturates Screen NEGATIVE Ur Phencyclidine Scrn NEGATIVE Ur Amphetamines Screen NEGATIVE U Methamphetamin-MDMA NEGATIVE U Benzodiazepines Scrn NEGATIVE Urine Cocaine Screen NEGATIVE U Cannabinoids Screen NEGATIVE Ur Drug Screen Comment Ethyl Alcohol 04/23/19 04/23/19 07:20 10:00 WBC RBC Hgb Hct MCV MCH MCHC RDW RDW Differential Plt Count MPV Immature Gran % (Auto) Neut % (Auto) Lymph % (Auto) [place] % (Auto) Eos % (Auto) Baso % (Auto) Absolute Neuts (auto) Absolute Lymphs (auto) Total Counted PT INR Sodium Potassium Chloride Carbon Dioxide Anion Gap BUN Creatinine Estim Creat Clear Calc Est GFR (MDRD) Af Amer Est GFR (MDRD) Non-Af BUN/Creatinine Ratio Glucose Calcium Magnesium Total Bilirubin AST ALT Alkaline Phosphatase Troponin I < 0.015 < 0.015 B-Natriuretic Peptide Total Protein Albumin Globulin Albumin/Globulin Ratio TSH Urine Color Urine Clarity Urine pH Ur Specific [place] Urine Protein Urine Glucose (UA) Urine Ketones Urine Occult Blood Urine Nitrite Urine Bilirubin Urine Urobilinogen Ur Leukocyte Esterase Urine RBC Urine WBC Ur Squamous Epith Cells Urine Bacteria Urine Mucus Urine Opiates Screen Urine Methadone Screen Ur Barbiturates Screen Ur Phencyclidine Scrn Ur Amphetamines Screen U Methamphetamin-MDMA U Benzodiazepines Scrn Urine Cocaine Screen U Cannabinoids Screen Ur Drug Screen Comment Ethyl Alcohol POC Glucose 04/23/19 04/23/19 04/23/19 15:18 11:22 07:02 POC Glucose 78 86 91 Assessment/Plan This patient was seen in conjunction with NATALIIA Liz. I have independently interviewed and examined the patient and reviewed pertinent historical, laborat ory, and other data. Please refer to NATALIIA Liz note for his patient's presentation, findings, and recommendations. I have reviewed and his note and concur with his documentation 68-year-old male, resident in a shelter, history of Parkinson's disease with psychosis, hypertension, history of DVT/PE who comes in with worsening agitation. Patient remains, confused and combative. Remains in atrial fibrillation, rate controlled. Unable to take review of systems Vital signs stable. Physical Exam: Gen: Looks in some discomfort, not pale, not jaundiced CVS:HS I +II, regular, no murmurs RESP: Diminished at lung bases GI: BS present and normal, soft, nontender, no palpable organs EXT:No edema Labs: Appointments are negative, labs unremarkable. ASSESSMENT: 1. Acute delirium, likely medication related 2. A. fib with RVR, on metoprolol, INR is 1.9 3. Acute diastolic CHF ruled out, 2D echo shows EF of 60%, no diastolic noted 4. Parkinson's disease with dementia and psychosis 5. History of PE 6. Hypertension 7. Type II DM Plan: Adjustments made to the medications, will continue to monitor on delirium prevention protocol Repeat INR in a.m. PT and OT to evaluate and treat Code Visit Inpatient E&M: 72693 Subs Hosp L3
--- NOTE | 2019-04-23 14:24 | CASEMGMT ---
Updates faxed to [facility]. Lashonda DUMONT DIRECTOR [employer]
[2019-04-23 15:36] LABS: Bedside Glucose 78 mg/dL (70-110)
[2019-04-23 15:36] LABS: Bedside Glucose 86 mg/dL (70-110)
[2019-04-23 18:21] LABS: Bedside Glucose 88 mg/dL (70-110)
[2019-04-23 22:01] LABS: Bedside Glucose 96 mg/dL (70-110)
[2019-04-23] MEDS: 0.9% NaCl Peripheral Flush Adult/Peds IV (22:40)
[2019-04-24] VITALS (10 sets, daily range): BP systolic 112–121; BP diastolic 71–84; PULSE 78–87; RESP 15–18; TEMP 36.7; O2SAT 92–98
[2019-04-24 01:50] LABS: Bedside Glucose 124 mg/dL (70-110)
[2019-04-24] MEDS: Furosemide 20 MG/2 ML VIAL IV (05:07)
[2019-04-24] MEDS: Pramipexole Di-HCl 0.25 MG Tablet 0.75 MG PO (05:08)
[2019-04-24] MEDS: 0.9% NaCl Peripheral Flush Adult/Peds IV (05:23)
--- NOTE | 2019-04-24 05:55 | EKG12_ITS ---
Test Reason : AM EKG Blood Pressure : / mmHG Vent. Rate : 077 BPM Atrial Rate : 326 BPM P-R Int : 000 ms QRS Dur : 156 ms QT Int : 414 ms P-R-T Axes : 000 -80 014 degrees QTc Int : 468 ms Atrial flutter Right bundle branch block Left anterior fascicular block Bifascicular block Abnormal ECG Confirmed by SHAYNA NAVARRO, YU ([id number]), proposal editor PAUL ANGELA ([id number] on 04/28/2019 12:01:28 PM Referred By: Errol Longoria Confirmed By:YU CORRAL MD
[2019-04-24 06:06] LABS: Anion Gap 7 (5-15); BUN 25 mg/dL (7-18); BUN/Creat Ratio 21.6 RATIO (10-20); Calcium,Total 8.6 mg/dL (8.5-10.1); Chloride 104 mmol/L (98-107); Creatinine, Serum 1.16 mg/dL (0.70-1.30); EST Glomerular Filtration Rate 67 mL/min (>60); Est Glom Filt Rate - Afr Amer 81 mL/min (>60); Estimated Creatinine Clearance 63.81 ml/min; Glucose 80 mg/dL (74-106); Potassium 3.8 mmol/L (3.5-5.1); Sodium Level 142 mmol/L (136-145)
[2019-04-24 06:08] LABS: International Normalized Ratio 1.8; Prothrombin Time (Protime)PT. 21.1 SECONDS (11.7-14.9)
[2019-04-24 06:10] LABS: Absolute Lymphocyte Count 2.03 X10^3/ul (0.83-4.51); Absolute Neutrophil Count 5.2 X10^3/uL (2.0-7.7); Basophil# 0.02 X10^3/uL; Basophil% 0.2 % (0-1); Eosinophil# 0.17 X10^3/uL; Hematocrit 43.4 % (40-54); Hemoglobin 13.7 g/dl (13.0-16.5); Lymphocyte # 2.03 X10^3/ul (4.0); Lymphocyte % 24.4 % (19-41); Mean Corp Hgb Conc 31.6 g/gl (32-36); Mean Corpuscular Hgb 24.7 pg (27.0-32.0); Mean Corpuscular Volume 78.2 fL (80-94); Mean Platelet Vol. 10.5 fl (6.2-12.0); Monocyte# 0.88 X10^3/uL; Monocyte% 10.6 % (0-10); Neutrophil # 5.19 X10^3/uL (2.7-7.7); Neutrophil % 62.6 % (47-70); Platelet Count 250 K/mm3 (150-450); RBC Distribution Width SD 48.1 fl (35.1-43.9); Red Blood Count 5.55 M/mm3 (4.6-6.2); White Blood Count 8.3 K/mm3 (4.4-11.0)
[2019-04-24 06:27] LABS: POSITIVE COUNT NO; POSITIVE DIFFERENTIAL NO; POSITIVE MORPHOLOGY NO
[2019-04-24 06:46] LABS: Bedside Glucose 76 mg/dL (70-110)
[2019-04-24] MEDS: Metoprolol Tartrate 25 MG Tablet PO (10:31)
[2019-04-24] MEDS: NIFEdipine 60 MG Tablet PO (10:31)
[2019-04-24] MEDS: Pantoprazole Sodium 40 MG Tablet PO (10:31)
[2019-04-24 10:40] LABS: Bedside Glucose 83 mg/dL (70-110)
--- NOTE | 2019-04-24 11:41 | PCM.EXTCARCO ---
<Vijay Whitfield - Last Filed: 04/24/19 11:41> - Diet 04/23/19 06:27 Diet: Cardiac: Calorie-Controlled Food consistency:: Regular Liquid Consistency:: Regular/Thin How many daily calories?: 1800 calorie - Routine Orders/Code Status Suppository Type: Dulcolax 10mg Suppository Frequency: Daily PRN Routine Lab Work: CBC - 1 week, BMP - 1 week, INR - 3 days Code Status: Full Code - Therapies Physical Therapy: Eval and Treat Occupational Therapy: Eval and Treat - Problem/Diagnosis (1) Atrial fibrillation with RVR Status: Acute Current Visit: Yes (2) Long QT interval Status: Acute Current Visit: Yes (3) Polypharmacy Status: Acute Current Visit: Yes (4) Diastolic CHF Status: Chronic Current Visit: Yes (5) Dementia Status: Chronic Current Visit: Yes (6) History of DVT (deep vein thrombosis) Status: Chronic Current Visit: Yes (7) History of pulmonary embolism Status: Chronic Current Visit: Yes (8) Type 2 diabetes mellitus Status: Chronic Current Visit: Yes (9) Parkinson disease Status: Chronic Current Visit: No - Allergies/Procedures Done in Hospital Allergies/Adverse Reactions: Allergies No Known Allergies Allergy (Verified 04/23/19 03:43) Procedures: 2-D Echocardiogram - Type of Care/Length of Stay Estimated LOS: Convalescent Care Less Than 30 days Type of Care Needed: Skilled Rehab Potential: Fair Prognosis: Fair - Additional Orders/Day of Discharge Day of Discharge: 04/24/19 - Dietary and Speech Recommendations Dietitian Recommendations/Changes: Recommend CHO controlled, cardiac, low sodium diet w/ fluid restriction as indicated. - Follow Up Care Primary Care Physician: Deng Velasquez NP-C [Primary Care Provider] - Please follow up with your Primary Care Physician in: 2 weeks Please Follow Up With: Neurology When: 1-2 weeks Please Follow Up With: Psychiatry When: 1-2 weeks <Valentina Flores - Last Filed: 04/24/19 15:00> - Diet 04/23/19 06:27 Diet: Cardiac: Calorie-Controlled Food consistency:: Regular Liquid Consistency:: Regular/Thin Diet Comments: Start when patient is fully awake and alert. How many daily calories?: 1800 calorie Diet: Nothing Per Oral - Additional Orders/Day of Discharge Additional Orders: Recommend that his Parkinson's medications be resumed slowly over the next couple of days. Recommend following up with his neurologist within 1-2 weeks.
--- NOTE | 2019-04-24 13:55 | PCM.DC.SUM ---
<Vijay Whitfield - Last Filed: 04/24/19 13:55> Discharge Date and Diagnosis - Problem List Patient Problems: Active and Suspected Problems Polypharmacy (Acute) Long QT interval (Acute) Probable acute CHF (Acute) Agitation (Acute) Atrial fibrillation with RVR (Acute) Date of Admission: 04/23/19 Date of Discharge: 04/24/19 - Primary Discharge Diagnosis Active and Suspected Problems Acute toxic encephalopathy 2/2 polypharmacy Afib with RVR 2/2 QT prolongation 2/2 polypharmacy Chronic diastolic congestive heart failure, acute exacerbation ruled out. 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 History of PE, DVT Hypertension Type 2 diabetes mellitus - Secondary Discharge Diagnosis Chronic Problems Diastolic CHF (Chronic) Dementia (Chronic) History of pulmonary embolism (Chronic) History of DVT (deep vein thrombosis) (Chronic) Type 2 diabetes mellitus (Chronic) Hypertension (Chronic) Chronic anticoagulation (Chronic) Secondary to remote history of DVT/PE Hallucination (Chronic) Believed secondary to parkinsonian medication Parkinson disease (Chronic) Hospital Course and Treatment Imaging Results: CT/Brain/Head without Contrast IMPRESSION: Negative unenhanced CT scan of the brain for acute intracranial abnormality. RAD/Chest 1 View (Portable) IMPRESSION: Central vascular congestion. No focal lung consolidative changes. Echo: Interpretation Summary The study was technically difficult. The estimated ejection fraction is 60 %. Normal diastology for age. Diluted definity 4.0ml given slow IV push to enhance endocardial definition. The study was technically difficult. Operations: None Procedures: 2-D Echocardiogram Summary of Care Provided: Hospital course: The patient is a 68 year old M with past medical history of Parkinson's disease with associated dementia, behavioral disturbances, history of atrial fibrillation, DVTs, PEs, hypertension who presented to the emergency room from [facility] because of agitation. The patient was taking Sinemet, doxepin, tramadol, Neurontin, Nuplazid, Mirapex, Seroquel, and most recently received as needed Haldol at the correction for agitation. In the emergency the patient was very somnolent, he was also found to be in atrial fibrillation with rapid ventricular response, and a prolonged QT interval greater than 500. The patient was admitted to the PCU for A. fib RVR, prolonged QT interval, and toxic encephalopathy. His oral medications were discontinued except for metoprolol. His rate was well controlled. He remained extremely lethargic for the better part of the first day. Multiple medications listed above contribute to prolonged QT interval. Also has a history of toxic encephalopathy secondary to Parkinson's medications. Off of his Parkinson's medications his mental status improved, lethargy resolved, and he remained calm and cooperative with us. At this time we recommend not restarting the above agents except for Neuplazid, as this is appropriate for Parkinson's with behavioral disturbance. As his heart rate was controlled and his encephalopathy, he was discharged back to detention in stable condition. He has his own neurologist who he should follow-up within the next 1 to 2 weeks, he has his own psychiatrist who she should also follow-up within the next 1 to 2 weeks, and he will also need to follow-up with his PCP in 2 weeks. This patient was seen by Vijay Whitfield PA-C under the supervision of Doctor Flores. [] Patient Problems: Active and Suspected Problems Polypharmacy (Acute) Long QT interval (Acute) Probable acute CHF (Acute) Agitation (Acute) Atrial fibrillation with RVR (Acute) - Physical Exam General: Alert, Cooperative, - - Alert and oriented x2 person and place HEENT: Atraumatic, PERRLA, EOMI, Normocephalic Neck: Supple, No JVD, Negative Carotid Bruits Lungs: Clear to auscultation, Normal air movement Cardiovascular: Regular rate, No murmurs Abdomen: Bowel Sounds Present, Soft, Non Tender Extremities: No edema, Capillary Refill Less than 3 Seconds Skin: No rashes, No breakdown Musculoskeletal: No Tenderness to Palpation of Joints or Extremities Neurological: Cranial nerves II-XII grossly intact Psych/Mental Status: Normal Affect, Appropriate Vital Signs Temp Pulse Resp BP Pulse Ox 98.1 F 83 15 118/71 98 04/24/19 10:30 04/24/19 10:31 04/24/19 10:30 04/24/19 10:30 04/24/19 10:30 Oxygen Flow Rate (L/min) 3 Oxygen Delivery Method Room Air Weight: 233 lb 3.985 oz Body Mass Index (BMI) 33.4 Intake and Output for Last 24 Hours 04/22/19 04/23/19 04/24/19 23:59 23:59 23:59 Intake Total 720 / 720 100 / 100 Output Total 4925 / 4925 Balance -4205 / -4205 100 / 100 Laboratory Tests Past 24 Hrs 04/24/19 04/24/19 04/24/19 05:30 05:30 05:30 WBC 8.3 RBC 5.55 Hgb 13.7 Hct 43.4 MCV 78.2 L MCH 24.7 L MCHC 31.6 L RDW 17.0 H RDW Differential 48.1 H Plt Count 250 MPV 10.5 Immature Gran % (Auto) 0.200 Neut % (Auto) 62.6 Lymph % (Auto) 24.4 [place] % (Auto) 10.6 H Eos % (Auto) 2.0 Baso % (Auto) 0.2 Absolute Neuts (auto) 5.2 Absolute Lymphs (auto) 2.03 Total Counted Not Reportable PT 21.1 H INR 1.8 Sodium 142 Potassium 3.8 Chloride 104 Carbon Dioxide 31.0 Anion Gap 7 BUN 25 H Creatinine 1.16 Estim Creat Clear Calc 63.81 Est GFR (MDRD) Af Amer 81 Est GFR (MDRD) Non-Af 67 BUN/Creatinine Ratio 21.6 H Glucose 80 Calcium 8.6 POC Glucose 04/24/19 04/24/19 04/24/19 10:28 05:32 01:34 POC Glucose 83 76 124 H 04/23/19 04/23/19 04/23/19 21:50 18:03 15:18 POC Glucose 96 88 78 04/23/19 11:22 POC Glucose 86 Discharge Diet: Low fat/ Low Cholesterol, 2000 Calorie Control Diet, - - 0490-9235 mg sodium Discharge Activity: Return to Normal Activity Home Medications: Medications to take at Discharge NIFEdipine [Procardia Xl] 60 mg PO DAILY 07/13/17 Omeprazole [Prilosec] 40 mg PO DAILY 07/13/17 Warfarin Sodium [Coumadin] 3 mg PO DAILY 07/13/17 Furosemide [Lasix] 20 mg PO QODAY 04/23/19 Insulin Lispro [Humalog] 3 unit SQ TID 04/23/19 Linagliptin [Tradjenta] 2.5 mg PO DAILY 04/23/19 Metoprolol Tartrate 25 mg PO BID 04/23/19 Multivit with Iron,Minerals [Complete Senior] 1 ea PO DAILY 04/23/19 Pimavanserin Tartrate [Nuplazid] 34 mg PO DAILY 04/23/19 Pramipexole Di-HCl [Mirapex] 0.75 mg PO TID 04/23/19 Warfarin [Coumadin] 4 mg PO DAILY 04/23/19 Melatonin 3 mg PO QHS PRN #0 tab 04/24/19 Primary Care Physician: Deng Velasquez, JEVONC [Primary Care Provider] - Please follow up with your Primary Care Physician in: 2 weeks Please Follow Up With: Neurology When: 1-2 weeks Please Follow Up With: Psychiatry When: 1-2 weeks Additional Instructions: Assess daily weights Disposition: [facility] Minutes spent on discharge:: 35 Patient Condition:: Stable Medical Necessity - Tobacco Use Smoking Status: Never smoker Meaningful Use Info Meaningful Use Diagnoses (Choose all that apply): None applicable <Valentina Flores - Last Filed: 04/24/19 15:04> Discharge Date and Diagnosis - Primary Discharge Diagnosis Active and Suspected Problems Polypharmacy (Acute) Long QT interval (Acute) Probable acute CHF (Acute) Agitation (Acute) Atrial fibrillation with RVR (Acute) - Secondary Discharge Diagnosis Chronic Problems Diastolic CHF (Chronic) Dementia (Chronic) History of pulmonary embolism (Chronic) History of DVT (deep vein thrombosis) (Chronic) Type 2 diabetes mellitus (Chronic) Hypertension (Chronic) Chronic anticoagulation (Chronic) Secondary to remote history of DVT/PE Hallucination (Chronic) Believed secondary to parkinsonian medication Parkinson disease (Chronic) Hospital Course and Treatment Summary of Care Provided: 68-year-old male, who looks older than his age,, resident in a correction, history of Parkinson's disease with psychosis, hypertension, history of DVT/PE who comes in with worsening agitation. Patient's medications were adjusted. He was also found to be in A. fib with RVR. Patient was monitored with improvement in his RVR. He remained in A. fib. His mentation was remarkably improved and he was back to being alert oriented x2. It was recommended that he should be discharged on his Neuplazid and over the next 1 to 2 days his Parkinson's medications can be reintroduced. On the day of discharge, his vital signs were stable. Physical Exam: Gen: AO x 2, not pale, not jaundiced CVS:HS I +II, regular, no murmurs RESP: Diminished at lung bases GI: BS present and normal, soft, nontender, no palpable organs EXT:No edema ASSESSMENT: 1. Acute delirium, secondary to medication, improved 2. A. fib with RVR, on metoprolol, Coumadin 3. Acute diastolic CHF ruled out, 2D echo shows EF of 60%, no diastolic dysfunction noted 4. Parkinson's disease with dementia and psychosis 5. History of PE 6. Hypertension 7. Type II DM - Physical Exam Vital Signs Temp Pulse Resp BP Pulse Ox 98.1 F 87 15 118/71 98 04/24/19 10:30 04/24/19 14:00 04/24/19 10:30 04/24/19 10:30 04/24/19 10:30 Oxygen Flow Rate (L/min) 3 Oxygen Delivery Method Room Air Weight: 105.8 kg Body Mass Index (BMI) 33.4 Intake and Output for Last 24 Hours 04/22/19 04/23/19 04/24/19 23:59 23:59 23:59 Intake Total 720 / 720 600 / 600 Output Total 4925 / 4925 350 / 350 Balance -4205 / -4205 250 / 250 Laboratory Tests Past 24 Hrs 04/24/19 04/24/19 04/24/19 05:30 05:30 05:30 WBC 8.3 RBC 5.55 Hgb 13.7 Hct 43.4 MCV 78.2 L MCH 24.7 L MCHC 31.6 L RDW 17.0 H RDW Differential 48.1 H Plt Count 250 MPV 10.5 Immature Gran % (Auto) 0.200 Neut % (Auto) 62.6 Lymph % (Auto) 24.4 [place] % (Auto) 10.6 H Eos % (Auto) 2.0 Baso % (Auto) 0.2 Absolute Neuts (auto) 5.2 Absolute Lymphs (auto) 2.03 Total Counted Not Reportable PT 21.1 H INR 1.8 Sodium 142 Potassium 3.8 Chloride 104 Carbon Dioxide 31.0 Anion Gap 7 BUN 25 H Creatinine 1.16 Estim Creat Clear Calc 63.81 Est GFR (MDRD) Af Amer 81 Est GFR (MDRD) Non-Af 67 BUN/Creatinine Ratio 21.6 H Glucose 80 Calcium 8.6 POC Glucose 04/24/19 04/24/19 04/24/19 14:39 10:28 05:32 POC Glucose 87 83 76 04/24/19 04/23/19 04/23/19 01:34 21:50 18:03 POC Glucose 124 H 96 88 04/23/19 04/23/19 15:18 11:22 POC Glucose 78 86 Code Visit Inpatient E&M: 63654 Disch Hosp
[2019-04-24 14:51] LABS: Bedside Glucose 87 mg/dL (70-110)
--- NOTE | 2019-04-24 14:57 | CASEMGMT ---
Social Work Per physician, pt is ready for d/c on this date and pt will return to [facility]. Transportation arranged with [facility] for pickle pumper at 4:00. Facility, Nursing and pt inocente Orta notified of d/c time. Orders faxed to [facility]ician[facility]. PAIGE Jurado
--- NOTE | 2019-04-24 15:26 | NURSING ---
REPORT CALLED TO ALAN LUNDBERG AT [facility].
== END 2019-04-24 16:00 | DRG 308 ==
LOC: ED 05:29 → PCU 05:59
PROVIDERS: Admitting Provider Hospitalist; Emergency Provider Emergency Medicine; Referring Provider Hospitalist; Visit Provider Internal Medicine
DX: I48.91 Unspecified atrial fibrillation (principal); G92 Toxic encephalopathy; I50.32 Chronic diastolic (congestive) heart failure; F02.81 Dementia in other diseases classified elsewhere, unspecified severity, with behavioral disturbance; G20 Parkinson's disease; E11.9 Type 2 diabetes mellitus without complications; I11.0 Hypertensive heart disease with heart failure; Z79.84 Long term (current) use of oral hypoglycemic drugs; Z79.01 Long term (current) use of anticoagulants; Z86.718 Personal history of other venous thrombosis and embolism; Z86.711 Personal history of pulmonary embolism; I45.81 Long QT syndrome; T50.995A Adverse effect of other drugs, medicaments and biological substances, initial encounter
CPT/HCPCS: 36415; 51702; 70450; 71045; 80048; 80053; 80307; 80320; 81001; 82962; 83735; 83880; 84443; 84484; 85025; 85610; 93005; 93306; 97110; 97162; 97166; 97530; 99285; Q9957; A4216; C8929; G0480; J1940